=== PATIENT | female | born 1995 | race African-American/Black ===

== ENCOUNTER 2022-08-29 10:12 | Emergency (ER) | payer OTHER, SELFPAY ==
[2022-08-29 10:30] VITALS: BP 130/81; PULSE 80; RESP 16; TEMP 36.5; O2SAT 100
--- NOTE | 2022-08-29 10:33 | ED.GENADULT ---
HPI - General Adult General Chief complaint: Eye Problems Stated complaint: rt eye irritation Time Seen by Provider: 08/29/22 10:39 Source: patient Mode of arrival: ambulatory Limitations: no limitations History of Present Illness HPI narrative: Patient is a 26-year-old female that presented with right eye redness, itching, discharge, swelling for week. Patient states started skin tear duct and went to upper eyelid and lower eyelid. Patient states she has used clear eyes without any relief. Related Data Home Medications Medication Instructions Recorded Confirmed dulaglutide 0.75 mg/0.5 mL See Rx Instructions .Route .COMPLEX 08/29/22 08/29/22 subcutaneous pen injector (Trulicity) escitalopram oxalate 20 mg tablet 1 mg PO DAILY 08/29/22 08/29/22 Allergies Allergy/AdvReac Type Severity Reaction Status Date / Time cefprozil [From Cefzil] Allergy Swelling Verified 08/29/22 10:37 of Lip/Tongue/Throat Review of Systems Review of Systems: All systems reviewed & are unremarkable except as noted in HPI and below Constitutional: Constitutional: Denies body ache(s), Denies fever(s), Denies headache(s), Denies malaise and Denies weakness Eyes: Eyes: Reports no additional eye complaints, Reports blurry vision, Reports eye discharge, Reports irritation, Reports itchy eyes, Denies loss of vision and Reports eye pain ENT: Reports system reviewed and no additional complaints, except as documented, Denies otalgia, Denies headache(s), Denies nasal discharge, Denies sinus pain and Denies sore throat Cardiovascular: Cardiovascular: Reports no additional cardiovascular complaints, Denies chest pain, Denies irregular heart rhythm and Denies dyspnea Respiratory: Respiratory: Reports no additional respiratory complaints and Denies dyspnea Gastrointestinal: Gastrointestinal: Reports no additional gastrointestinal complaints, Denies abdominal pain, Denies melena, Denies hematochezia, Denies diarrhea, Denies nausea and Denies vomiting Musculoskeletal: Musculoskeletal: Reports no additional musculoskeletal complaints, Denies back pain, Denies myalgias and Denies arthralgias Integumentary/Breasts: Skin/Breast: Reports system reviewed and no additional complaints, except as docu, Denies pruritus and Denies rash Neurologic: Reports system reviewed and no additional complaints, except as documented, Denies headache(s), Denies loss of vision and Denies weakness Psychiatric: Psychiatric: Reports no additional psychiatric complaints PMFSH Comments At time of signature, agree with nursing past medical, surgical, social and family history. There is no relevant family history pertinent to the presenting complaint. Exam Const: General: cooperative, healthy appearing, comfortable, no acute distress and well nourished Nutritional Appearance: well nourished Orientation/consciousness: patient oriented x3 Limitations: no limitations HENMT: Head: normal to inspection, normocephalic and atraumatic Ears: external ears normal Face/Nose/Sinus: Normal external nose present, normal facial exam and face symmetric Face and sinus: normal facial exam and face symmetric Mouth: Yes lip normal Eyes: General: appearance normal, both eyes and all related structures Visual Avila: normal visual avila by confrontation Alignment and Position: alignment normal and position normal Periorbital: periorbital findings normal Eyelids: eyelid abnormality right upper eyelid erythema and swelling and right lower eyelid erythema and swelling Conjunctivae: conjunctival abnormality right conjunctival injection diffuse Sclera: scleral abnormality right scleral injection diffuse Pupils: Equal, round and reactive pupils present EOM: EOMs intact bilaterally Direct Ophthalmoscopy: no photophobia Other: No hyphema, no foreign body under the lids. Small amount of dried discharge noted in orders in lower lid of right eye. Neck: Neck: normal visual inspection, full
== END 2022-08-29 10:55 | disposition home or self-care (01) ==
PROVIDERS: Emergency Provider Nurse Practitioner Family
DX: H10.9 Unspecified conjunctivitis (principal)
CPT/HCPCS: 99213; G0463

== ENCOUNTER 2023-02-28 13:01 | Emergency (ER) | payer OTHER, SELFPAY ==
--- NOTE | 2023-02-28 13:07 | ED.FEMALEGU ---
HPI - Female Genitourinary General Chief complaint: Urogenital-Female Stated complaint: VAGINAL BLEEDING Time Seen by Provider: 02/28/23 13:30 Source: patient and RN notes reviewed Mode of arrival: ambulatory Limitations: no limitations History of Present Illness HPI Narrative: 27-year-old female presents concern for irregular vaginal bleeding. She reports she has had menstrual bleeding for 3 weeks. She reports at times that have heavier flow, reports at other times she is spotting. She reports she currently is spotting. She is not taking control. She denies any chance of . She denies abdominal pain, back pain, fever, aches, chills, sweats. She denies dysuria, frequency, urgency. Reports she has had nighttime urinary incontinence several times a week for the last month. She reports she goes through no more than 2-3 tampons a day, sometimes less MD elicited complaint: vaginal bleeding Related Data Home Medications Medication Instructions Recorded Confirmed escitalopram oxalate 20 mg tablet 1 mg PO DAILY 08/29/22 02/28/23 Allergies Allergy/AdvReac Type Severity Reaction Status Date / Time cefprozil [From Cefzil] Allergy Swelling Verified 02/28/23 13:19 of Lip/Tongue/Throat Review of Systems Review of Systems: CONSTITUTIONAL: Denies malaise, chills, sweats, or fever. CARDIOVASCULAR: Denies chest pain, palpitations, or edema. RESPIRATORY: Denies cough or dyspnea. GASTROINTESTINAL: Denies abdominal pain, nausea, vomiting, diarrhea GENITOURINARY: Denies dysuria, frequency, urgency, suprapubic pressure, flank pain or hematuria. Reports irregular menstrual bleeding. Reports nighttime urinary incontinence SKIN: Denies rash or itching. MUSCULOSKELETAL: Denies back pain or myalgia. All systems reviewed & are unremarkable except as noted in HPI and below PMFSH Comments At time of signature, agree with nursing past medical, surgical, social and family history. There is no relevant family history pertinent to the presenting complaint Exam Narrative: GENERAL: Well-appearing, well-nourished, and in no acute distress. HEAD: Normocephalic. EYES: PERRLA, conjunctivae clear. NECK: Supple. No lymphadenopathy CHEST: Clear to auscultation. No respiratory distress. HEART: Regular rate and rhythm. ABDOMEN: Soft, nontender upon palpation, nondistended, normal active bowel sounds, no palpable or pulsatile masses, no guarding. No CVA tenderness SKIN: Warm, dry, no rash. NEURO: Alert and oriented x3. PSYCH: Normal mood and affect Course Course Emergency Course: Patient is aware of, understands and agrees to treatment plan. Anticipatory guidance given. Patient agrees to follow-up as directed and is aware of reasons to seek care at the emergency department. Portions of this record may have been created with voice recognition software Level of Care: Express Care Visit Vital Signs Vital signs: Reviewed. MDM - Female Genitourinary MDM Narrative Medical decision making narrative: Exam findings and UA show no acute concerns or changes; patient is non-toxic appearing and is in no distress. Patient is appropriate for outpatient treatment and follow-up. Differential Diagnosis Differential diagnosis: Likely urinary tract infection and cystitis Critical Care Time Critical Care Time Critical Care Time: No Discharge Plan Discharge Clinical Impression: Abnormal menstruation, Nocturnal enuresis Patient Disposition: Home, Self-Care Condition: Stable Instructions: Abnormal (Dysfunctional) Uterine Bleeding (ED) Additional Instructions: 1) Please follow-up with gynecology for further evaluation. 2) If you have any worsening of symptoms or any other urgent concerns please go to the ER. 3) Please continue taking your home medications as usual. 4) Please read and follow information included in discharge instructions. Prescriptions: No Action escitalopram oxalate 20 mg tablet 1
[2023-02-28 13:08] VITALS: BP 144/101; PULSE 80; RESP 16; TEMP 36.3; O2SAT 100
== END 2023-02-28 14:15 | disposition home or self-care (01) ==
PROVIDERS: Emergency Provider Nurse Practitioner
DX: N92.6 Irregular menstruation, unspecified (principal); N39.44 Nocturnal enuresis; F41.9 Anxiety disorder, unspecified
CPT/HCPCS: 81003; 99212; G0463

== ENCOUNTER 2025-02-06 17:27 | Emergency (ER) | payer OTHER, SELFPAY ==
[2025-02-06 17:40] VITALS: BP 123/81; PULSE 109; RESP 16; TEMP 36.8; O2SAT 97
[2025-02-06 18:17] LABS: EDCOVIDSCREEN Positive (Negative)
[2025-02-06 18:21] LABS: EDSTREPNEGPOS1 Negative (Negative)
--- NOTE | 2025-02-06 18:24 | ED_ITS ---
HPI - URI/Sore Throat General Chief Complaint: Upper Respiratory Infection Stated Complaint: SOB/CONGESTION/STOMACH/FACIAL PAIN/HENSON Time Seen by Provider: 02/06/25 18:12 Source: patient and RN notes reviewed Mode of arrival: ambulatory Limitations: no limitations History of Present Illness HPI Narrative: Patient presents today complaining of headache, sinus pressure since last night. States she did have a sore throat this has since resolved. Denies cough, fever shortness of breath. She has tried some Tylenol cold and flu and DayQuil without improvement. No history of asthma or COPD. She is a nonsmoker. Related Data Home Medications ?Medication ?Instructions ?Recorded ?Confirmed ?Last Taken ?Type bupropion HCl 150 mg 24 hr tablet, mg PO 02/06/25 Unknown History extended release escitalopram oxalate 10 mg tablet mg 02/06/25 Unknown History metformin 500 mg tablet,extended mg PO 02/06/25 Unknown History release 24 hr oxybutynin chloride 10 mg mg PO 02/06/25 Unknown History tablet,extended release 24 hr Allergies Allergy/AdvReac Type Severity Reaction Status Date / Time cefprozil (From Cefzil) Allergy Swelling Verified 02/06/25 18:09 of Lip/Tongue/Throat PMFSH Comments At time of signature, I have reviewed and agree with nursing past medical, surgical, social and family history unless otherwise noted. Please see nursing chart for further information. There is no relevant family history pertinent to the presenting complaint Exam Narrative: GENERAL: Mildly ill-appearing, well-nourished, and in mild pain distress HEAD: Normocephalic, atraumatic. EYES: EOMI. No redness or drainage. Conjunctivae normal. ENT: Mucous membranes pink and moist. Nares clear. No rhinorrhea. TMs normal bilaterally. Throat normal. Uvula midline. NECK: Normal AROM. Supple. No lymphadenopathy. CHEST: No respiratory distress. Clear to auscultation. HEART: Regular rate and rhythm. No murmur appreciated. EXTREMITIES: Normal range of motion. No edema. SKIN: Warm, dry, no rash. Capillary refill normal. Normal skin turgor. NEURO: No focal deficits. Alert and oriented x3. Gait steady. PSYCH: Normal affect. No signs of depression or anxiety. Course Course Level of Care: Express Care Visit Vital Signs Vital signs: Vital Signs Temperature 98.3 F 02/06/25 17:40 Pulse Rate 109 H 02/06/25 17:40 Respiratory Rate 16 02/06/25 17:40 Blood Pressure 123/81 02/06/25 17:40 Pulse Oximetry 97 02/06/25 17:40 Temperature 98.3 F 02/06/25 17:40 Pulse Rate 109 H 02/06/25 17:40 Respiratory Rate 16 02/06/25 17:40 Blood Pressure 123/81 02/06/25 17:40 Pulse Oximetry 97 02/06/25 17:40 Reviewed MDM - URI/Sore Throat MDM Narrative Medical decision making narrative: 29-year-old female patient presents today with headache and sinus pressure since last night. Denies any additional symptoms. She has tried some OTC medication without improvement. Patient's exam is benign aside from mildly ill appearing. Reports her major complaint is her severe headache. COVID positive. Rapid strep negative. Strep culture pending. After some discussion, patient declines prescription for Paxlovid. Discussed starting an NSAID for her headache and adding Tylenol if needed. She is not exhibiting any red flag symptoms that would warrant to ED transfer at this time. Vital signs stable. Anticipatory guidance given. Differential Diagnosis Differential diagnosis: Likely upper respiratory infection, otitis media, sinusitis, viral infection, pharyngitis and other (Strep throat, COVID) Lab Data Attestation: I reviewed the patient's lab results. Labs: Lab Results 02/06/25 02/06/25 Range/Units 18:16 18:19 POC SARS CoV-2 Ag Positive (Negative) POC Grp A Strep Screen Negative (Negative) Critical Care Time Critical Care Time Critical Care Time: No Discharge Plan Discharge Clinical Impression: COVID-19 Patient Disposition: Home Condition: Stable Instructions: COVID-19 (Coronavirus Disease 2019) (ED) Additional Instructions: You have tested positive for COVID-19 today. Your rapid strep is negative. Start an anti-inflammatory such as Aleve or ibuprofen per bottle guidelines, for your headache and sinus pressure. You may consider adding on a decongestant as well. COVID, as well as other viral illnesses, can last 7-14 days. Follow-up with your PCP in 10 days if symptoms are not improving. If symptoms worsen to include chest pain, shortness of breath, lethargy, please go to the ER for further evaluation. Patient Language: Setswana Prescriptions: No Action oxybutynin chloride 10 mg tablet extended release 24hr PO metformin 500 mg tablet extended release 24 hr PO bupropion HCl 150 mg tablet extended release 24 hr PO escitalopram oxalate 10 mg tablet Follow-up/Referrals: Josue,Erika [Other] Stand Alone Forms: Work/School Release IP Time of Disposition: 18:28
== END 2025-02-06 18:35 | disposition home or self-care (01) ==
PROVIDERS: Emergency Provider Nurse Practitioner
DX: U07.1 COVID-19 (principal); E11.9 Type 2 diabetes mellitus without complications; Z79.84 Long term (current) use of oral hypoglycemic drugs; F41.9 Anxiety disorder, unspecified
CPT/HCPCS: 87081; 87426; 87880; 99213; G0463